=== PATIENT | female | born 1935 | race Caucasian/White ===

== ENCOUNTER 2017-06-02 19:19 | Inpatient (IN) | payer MEDICARE, MEDICAID ==
[~2017-06-02] VITALS: Ht 167.6 cm; Wt 109.8 kg
--- NOTE | 2017-06-02 19:25 | NUR ---
"A-FIB ON MONITOR REED FIXER". NAD NOTED, VSS, RESP EVEN AND UNLABORED, PT WAS PUT ON MONITOR AND [facility] MD SIMONE AT BS.
[2017-06-02 19:52] LABS: BASOPHILS # (AUTO) 0.1 /CMM (0.0-0.2); BASOPHILS % (AUTO) 1.2 % (0.0-2.0); EOSINOPHILS % (AUTO) 0.1 % (0.0-6.0); HEMATOCRIT 32 % (33-45); HEMOGLOBIN 10.6 g/dL (11.5-14.8); LYMPHOCYTES # (AUTO) 0.5 /CMM (0.8-4.8); LYMPHOCYTES % (AUTO) 7.4 % (20.0-44.0); MEAN CORPUSCULAR HGB CONC 34 g/dl (31.0-36.0); MEAN CORPUSCULAR VOLUME 81 fL (82-100); MONOCYTES # (AUTO) 0.1 /CMM (0.1-1.30); MONOCYTES % (AUTO) 1.9 % (2.0-12.0); NEUTROPHILS # (AUTO) 5.8 /CMM (1.8-8.9); NEUTROPHILS % (AUTO) 89.4 % (43.0-81.0); PLATELET COUNT (AUTO) 147 /CMM (150-450); RDW COEFFICIENT OF VARIATION 15.4 (11.5-15.0); RED BLOOD CELL COUNT(AUTO) 3.89 MIL/uL (4.0-5.2); WHITE BLOOD COUNT (AUTO) 6.5 K/uL (4.3-11.0)
[2017-06-02] MEDS ORDERED: IV NS 0.9% 1,000 ML BAG IV ONE (20:00)
[2017-06-02 20:03] LABS: CALCIUM, SERUM 9.1 mg/dL (8.5-10.1); CARBON DIOXIDE 25 mmol/L (21-32); CHLORIDE 101 mmol/L (98-107); CREATININE 1.5 mg/dL (0.6-1.3); GLUCOSE 97 mg/dL (74-106); POTASSIUM 4.5 mmol/L (3.5-5.1); SODIUM SERUM 136 mmol/L (136-145); UREA NITROGEN, BLOOD 41 mg/dL (7-18)
[2017-06-02 20:06] LABS: INR 1.18 (0.85-1.15)
[2017-06-02 20:07] LABS: APPEARANCE,URINE Clear (CLEAR); BILIRUBIN,URINE Negative (NEGATIVE); BLOOD, URINE Trace-lysed Ery/uL (NEGATIVE); COLOR,URINE Yellow (YELLOW); KETONES,URINE Negative (NEGATIVE); LEUKOCYTE ESTERASE ,URINE Negative (NEGATIVE); NITRITE, URINE Negative (NEGATIVE); PH,URINE 5.5 (5.0-8.0); PROTEIN,URINE 100 mg/dl (NEGATIVE); UGLUCOSE Negative (NEGATIVE); UROBILINOGEN,URINE 0.2 EU/dL (0.2)
[2017-06-02 20:08] LABS: ALANINE AMINOTRANSFERASE 27 U/L (12-78); ALBUMIN 3.5 g/dL (3.4-5.0); ALKALINE PHOSPHATASE 93 U/L (46-116); ASPARTATE AMINOTRANSFERASE 21 U/L (15-37); BILIRUBIN,DIRECT 0.3 mg/dL (0.0-0.2); BILIRUBIN,TOTAL 0.7 mg/dL (0.2-1.0); TOTAL PROTEIN, SERUM 7.9 g/dL (6.4-8.2)
[2017-06-02 20:10] LABS: TROPONIN I < 0.017 ng/mL (0.00-0.056)
[2017-06-02 20:21] LABS: BACTERIA,URINE Rare /HPF (None Seen); SQUAMOUS EPITHELIAL CELL,UR Few /HPF (None Seen); WBC,URINE 0-2 /HPF (0-3)
[2017-06-02] MEDS ORDERED: ACETAMINOPHEN ES 500 MG TABLET PO ONE (21:00)
[2017-06-02] MEDS ORDERED: PIPERACILLIN /TAZOBACTAM 3.375 G in IV D5W 50 ML IV ONE (21:00)
[2017-06-02] MEDS ORDERED: IV NS 0.9% 1,000 ML IV PRN (21:02)
[2017-06-02] MEDS ORDERED: ACETAMINOPHEN ES 500 MG TABLET ONE (21:11)
[2017-06-02] MEDS ORDERED: PIPERACILLIN /TAZOBACTAM 3.375 G VIAL IV ONE (21:11)
[2017-06-02] MEDS ORDERED: VANCOMYCIN 1 GM VIAL ONE (21:11)
--- NOTE | 2017-06-02 21:29 | NUR ---
US AT BS.
[2017-06-02] MEDS ORDERED: Z GUARD REMEDY 2 OZ OINT TP PRN (21:30)
[2017-06-02] MEDS ORDERED: ONDANSETRON HCL/PF 4 MG/2 ML VIAL IVP PRN (21:30)
[2017-06-02] MEDS ORDERED: HYDROCODONE/APAP 5/325MG 1 EACH TABLET PO PRN (21:30)
[2017-06-02] MEDS ORDERED: ZOLPIDEM TARTRATE 5 MG TABLET PO PRN (21:30)
[2017-06-02] MEDS ORDERED: VANCOMYCIN 0.75 GM in IV NS 0.9% 250 ML IV SCH (21:30)
[2017-06-02] MEDS ORDERED: METOPROLOL TARTRATE INJ 5 MG/5 ML AMPUL IVP PRN (21:30)
[2017-06-02] MEDS ORDERED: MORPHINE SULFATE INJ 2 MG/ML DISP.SYRIN IV PRN (21:30)
[2017-06-02] MEDS ORDERED: IPRATROPIUM NEB FS 0.5 MG/2.5 ML AMPUL.NEB NEB PRN (21:30)
[2017-06-02] MEDS ORDERED: MAG HYDROX/AL HYDROX/SIMETH 30 ML UDC PO PRN (21:30)
[2017-06-02] MEDS ORDERED: ACETAMINOPHEN 325 MG TABLET PO PRN (21:30)
[2017-06-02] MEDS ORDERED: MAGNESIUM HYDROXIDE 30 ML UDC PO PRN (21:30)
[2017-06-02 21:50] VITALS: BP 98/50
--- NOTE | 2017-06-02 21:51 | NUR ---
REPORT GIVENTO MARIVEL/RN ON BEHALF OF PRIMARY NURSE FAUSTINO
[2017-06-02 22:00] VITALS: BP 98/50
[2017-06-02] MEDS ORDERED: VANCOMYCIN 1.5 GM in IV D5W 500 ML IV ONE (22:00)
[2017-06-02] MEDS ORDERED: VANCOMYCIN 500 MG VIAL ONE (22:08)
--- NOTE | 2017-06-02 22:30 | NUR ---
RN NOTES RECEIVE PT FROM [facility] AT 2150 VIA JEN PT A/O X 3, JAPANESE SPEAKING. DAUGHTER DARYL AT BEDSIDE. ON O2 2LPM VIA NC 02 SAT 96%. HEAD TO TOE SKIN ASSESSMENT IS DONE. MED RECON DONE. NO S/S OF DISTRESS, STABLE, SAFETY MEASURES IN PLACE, CALL LIGHT WITHIN REACH, WILL CONTINUE TO MONITOR. ATTACH TO TELE MONITOR. PT AFEBRILE. RESPIRATION EVEN AND UNLABORED. NO CHEST PAIN.
[2017-06-02] MEDS ORDERED: PIPERACILLIN /TAZOBACTAM 2.25 G in IV D5W 50 ML IV SCH (23:00)
[2017-06-02] MEDS ORDERED: FAMO20TA8 PO (23:24)
[2017-06-02] MEDS ORDERED: FURO80TA3 PO (23:24)
[2017-06-02] MEDS ORDERED: MECL-102 PO (23:24)
[2017-06-02] MEDS ORDERED: DIGO0.12 PO (23:24)
[2017-06-02] MEDS ORDERED: ZOLP10TA6 PO (23:24)
[2017-06-02] MEDS ORDERED: CHOL20004 PO (23:24)
[2017-06-02] MEDS ORDERED: DIGOXIN 0.125 MG TABLET PO SCH (23:30)
[2017-06-03] VITALS (8 sets, daily range): BP systolic 108–165; BP diastolic 59–95
[2017-06-03] MEDS ORDERED: PIPERACILLIN /TAZOBACTAM 3.375 G in IV NS 0.9% 50 ML IV SCH ×2
[2017-06-03] MEDS ORDERED: WARF-68 PO (00:11)
[2017-06-03] MEDS ORDERED: SPIR50TA5 PO (00:11)
[2017-06-03] MEDS ORDERED: DOCU100C36 PO (00:11)
[2017-06-03] MEDS ORDERED: ELET40TA PO (00:11)
[2017-06-03] MEDS ORDERED: DICL50TA7 PO (00:11)
[2017-06-03] MEDS ORDERED: GABA-534 PO (00:11)
[2017-06-03] MEDS ORDERED: SIMV20TA6 PO (00:11)
[2017-06-03] MEDS ORDERED: ASPI-1152 PO (00:11)
[2017-06-03] MEDS ORDERED: WARF-58 PO (00:11)
[2017-06-03] MEDS ORDERED: INSU100V30 IJ (00:16)
[2017-06-03] MEDS ORDERED: INSU100V7 SQ (00:16)
--- NOTE | 2017-06-03 01:26 | NUR ---
ELADIO DORSEY MADE AWARE OF MEDICATION RECONCILIATION PER SHE WILL TAKE LOOK OF IT.
--- NOTE | 2017-06-03 02:40 | NUR ---
PAGED DR. DORSEY REGARDING RESULT OF VENOUS STUDIES AWAITING CALL BACK
--- NOTE | 2017-06-03 03:00 | NUR ---
PAGED AGAIN DR. DORSEY TO RELAY REGARDING A-FIB CURRENT HR IS 145'S DESPITE GIVING LOPRESSOR AWAITING CALL BACK ORDERED STAT EKG CHARGE NURSE MADE AWARE
--- NOTE | 2017-06-03 03:15 | NUR ---
[employer] NURSE NOTES PAGED DR. DORSEY AGAIN AWAITING CALL BACK
--- NOTE | 2017-06-03 03:25 | NUR ---
DR. DORSEY CALLED BACK SPOKE TO HER RELAYED CURRENT READING OF EKG A-FIB WITH RVR AND VENOUS LOWER EXTREMITY DOPPLER RESULTS PT REMAINS CALM CURRENT VS BP 131/63 PULSE 140 T 98.7 R 20 02 SAT 97% ON 2LPM VIA NC. PER DR. DORSEY SHE WILL ENTER DIGOXIN ORDER FOR ME TO GIVE NOW AND TRANSFER PATIENT TO [facility] VERIFIED ORDERS AND READ BACK NOTED AND CARRIED OUT CHARGE NURSE AWARE
--- NOTE | 2017-06-03 03:50 | NUR ---
TRANSFERRED PATIENT TO [facility] NO INCIDENT HAPPENED. PLAN OF CARE DISCUSSED TO RECEIVING [facility] RN
[2017-06-03] MEDS ORDERED: ENOXAPARIN SODIUM 100 MG/ML DISP.SYRIN SQ SCH ×2 (04:00→21:00)
[2017-06-03] MEDS ORDERED: DILTIAZEM HCL 50 MG IV IV ONE (04:00)
[2017-06-03] MEDS ORDERED: DIGOXIN INJ 0.5 MG/2 ML AMPUL IV ONE (04:00)
[2017-06-03] MEDS ORDERED: DILTIAZEM HCL IV 125 MG in IV NS 0.9% 100 ML IV PRN (04:00)
--- NOTE | 2017-06-03 04:00 | NUR ---
RN NOTES RECEIVED PATIENT FROM [facility]W VIA ACLS PROTOCOL. RECEIVED REPORT FROM MARIVEL. DIGOXIN GIVEN PRIOR TO TRANSFER TO UNIT. PATIENT IN NO ACUTE DISTRESS. DENIES ANY PAIN AND DISCOMFORT. PLACED PATIENT ON 2LPM OF O2 VIA NC, RESPIRATION IS EVEN AND UNLABORED WITH NO DISTRESS. VS AT 148/83, 115-125 HR, AFIB, 98% ON 2LPM VIA NC. WITH G24 PIV ON RAC, WAS ABLE TO INSERT G20 PIV ON LAC. CLOSELY MONITORED.
[2017-06-03] MEDS ORDERED: DILTIAZEM HCL 25 MG IV ONE ×2 (04:22→04:26)
--- NOTE | 2017-06-03 04:30 | NUR ---
RN NOTES SPOKE AND CLARIFIED WITH DR. DORSEY REGARDING THE STARTING DOSE OF THE PATIENT'S DILTIAZEM GTT. VS ARE: 147/81, HR RANGES FROM 98-112 AFIB, 18 RESPIRATION, 98% ON 2LPM OF O2 VIA NC. PER DR. DORSEY, GIVE THE CARDIZEM 5MG IVP FIRST AND OBSERVED PATIENT'S RESPONSE FOR 30 MINUTES. IF PATIENT REMAINS AFIB, WITH HR CONSISTENT TO BE >110, START DILTIAZEM GTT AT 5MG/HR. NOTED. LEIGHTON LYMAN, MADE AWARE. DILTIAZEM IVP X1 ADMINISTERED ORDERED. STRIPS PRINTED AND FILED IN CHART. Addendum: 06/03/17 at 0507 by YAKOV MOSS RN LOVENOX GIVEN ORDERED. NOTED WITH LLE SWELLING, REDNESS AND WARM TO TOUCH.
--- NOTE | 2017-06-03 04:34 | NUR ---
LEFT A MESSAGE TO PERSON TO NOTIFY VIA VOICEMAIL NOT ANSWERING ABOUT TRANSFERRING PT TO [facility] ([facility])
--- NOTE | 2017-06-03 05:09 | NUR ---
RN NOTES VS: 143/80, 100.4 TEMP, 20, 96% ON 2LPM VIA NC, AFIB WITH HR KEPT AT 90s. EVEN WITH PATIENT'S MOVEMENT, TRANSFERRING TO COMMODE AND BEARING DOWN. DR. DORSEY MADE AWARE. HOLD OFF ON CARDIZEM GTT, KEEP PRN. NOTED. LEIGHTON LYMAN, MADE AWARE.
[2017-06-03] MEDS ORDERED: PIPERACILLIN /TAZOBACTAM 2.25 G VIAL IV ONE (05:34)
[2017-06-03] MEDS ORDERED: PIPERACILLIN /TAZOBACTAM 2.25 G in IV D5W 50 ML IV SCH (06:00)
[2017-06-03 06:47] LABS: BASOPHILS % (AUTO) 0.3 % (0.0-2.0); HEMATOCRIT 27 % (33-45); HEMOGLOBIN 9.1 g/dL (11.5-14.8); LYMPHOCYTES # (AUTO) 0.5 /CMM (0.8-4.8); LYMPHOCYTES % (AUTO) 6.4 % (20.0-44.0); MEAN CORPUSCULAR HGB CONC 34 g/dl (31.0-36.0); MEAN CORPUSCULAR VOLUME 81 fL (82-100); MONOCYTES # (AUTO) 0.3 /CMM (0.1-1.30); MONOCYTES % (AUTO) 4.4 % (2.0-12.0); NEUTROPHILS % (AUTO) 88.9 % (43.0-81.0); PLATELET COUNT (AUTO) 122 /CMM (150-450); RDW COEFFICIENT OF VARIATION 16.1 (11.5-15.0); RED BLOOD CELL COUNT(AUTO) 3.31 MIL/uL (4.0-5.2); WHITE BLOOD COUNT (AUTO) 7.8 K/uL (4.3-11.0)
[2017-06-03 06:55] LABS: B-TYPE NATRIURETIC PEPTIDE 3344 PG/ML (0-125); CARBON DIOXIDE 22 mmol/L (21-32); CHLORIDE 104 mmol/L (98-107); CREATININE 1.6 mg/dL (0.6-1.3); GLUCOSE 134 mg/dL (74-106); MAGNESIUM 1.8 mg/dL (1.8-2.4); PHOSPHORUS 2.9 mg/dL (2.5-4.9); POTASSIUM 4.5 mmol/L (3.5-5.1); SODIUM SERUM 136 mmol/L (136-145); UREA NITROGEN, BLOOD 36 mg/dL (7-18)
[2017-06-03] MEDS ORDERED: FEE PK DOSING 1 MIN EA MC ONE (06:57)
[2017-06-03] MEDS ORDERED: IPRATROPIUM NEB FS 0.5 MG/2.5 ML AMPUL.NEB NEB PRN (07:00)
[2017-06-03] MEDS ORDERED: FENTANYL PF 100MCG/2ML AMPUL IV PRN (07:30)
[2017-06-03 07:40] LABS: CHOLESTEROL 155 mg/dL (<200); HDL CHOLESTEROL 39 mg/dL (40-60); LDL 102 mg/dL (0-99); THYROID STIMULATING HORMONE 1.162 uIU/mL (0.358-3.74); TRIGLYCERIDES 80 mg/dL (30-150)
[2017-06-03 07:53] LABS: IRON, SERUM 11 ug/dl (50-175); TOTAL IRON BINDING CAPACITY 211 ug/dl (250-450)
--- NOTE | 2017-06-03 08:00 | NUR ---
TD/RN AM SHIFT INITIAL NOTES RECEIVED PT ASLEEP IN BED, PT A/O X 3, VIETNAMESE SPEAKING, DENIES ANY SYMPTOMS. ON 2L O2 VIA N/C SATURATING @ 95%, LUNG SOUNDS DIMINISHED. ON TELE WITH CONTROLLED A-FIB WITH BBB, HR 93. IV SITES FLUSHED, PATENT WITH NO S/S OF INFECTION, SL. PT IS COMFORTABLE, SCHEDULED AM MEDS TO BE GIVEN. CL WITHIN REACHED AND SAFETY MAINTAINED. ON GOING MONITORING.
[2017-06-03] MEDS ORDERED: FUROSEMIDE 20 MG/2 ML VIAL IV ONE (08:30)
[2017-06-03] MEDS: MECLIZINE HCL 25 MG TABLET PO SCH (08:33)
[2017-06-03] MEDS: FAMOTIDINE (20 MG) 20 MG TABLET PO SCH (08:34)
[2017-06-03] MEDS ORDERED: FERROUS SULFATE (325 MG) 325 MG/TAB TABLET PO SCH (09:00)
[2017-06-03] MEDS ORDERED: FUROSEMIDE 80 MG TABLET PO SCH (09:00)
[2017-06-03] MEDS: CEFTRIAXONE 1 G in IV D5W 50 ML IV SCH (10:49)
[2017-06-03] MEDS: FUROSEMIDE 40 MG/4 ML VIAL IV SCH ×3 (10:51→18:12)
[2017-06-03] MEDS ORDERED: IV NS 0.9% 500 ML BAG IV ONE (11:00)
--- NOTE | 2017-06-03 12:00 | NUR ---
TELE1/RN NOON ROUNDS NO CHANGE OF CONDITION. MONITORING CONTINUED.
[2017-06-03 14:33] LABS: ABG BASE EXCESS -1.6 mmol/L; ABG OXYGEN SATURATION 94.6 % (92.0-98.5); ABG PCO2 38.1 mmHg (35.0-45.0); ABG PH 7.399 (7.350-7.450); ABG PO2 78.8 mmHg (75.0-100.0); AaDO2 25.3 mmHg; COHb 0.3 % (0.5-1.5); MetHb 0.6 % (0.0-1.5); O2Hb 93.7 % (94.0-97.0); SITE, ABG Left Radial; VENT MODE, BG RA
[2017-06-03] MEDS: SOD FERRIC GLUC 125 MG in IV NS 0.9% 100 ML IV SCH (14:47)
--- NOTE | 2017-06-03 17:30 | NUR ---
TELE1/RN AFTERNOON ROUNDS PM CARE PROVIDED. NO ACUTE CHANGE OF CONDITION.
[2017-06-03] MEDS: LACTOBACILLUS RHAMNOSUS GG 1 EACH CAP.SPRINK PO SCH (18:12)
--- NOTE | 2017-06-03 20:10 | NUR ---
TELE1/RN AM SHIFT END NOTES ALL NEEDS MET. NO ACUTE CHANGE OF CONDITION NOTED DURING THE SHIFT. PT ENDORSED TO PM NURSE TO CONTINUE CARE. CL WITHIN REACHED AND SAFETY MAINTAINED.
--- NOTE | 2017-06-03 22:34 | NUR ---
RN NOTES PATIENT'S NM LUNG SCAN RESULTED WITH OVAL INDETERMINATE PROBABILITY FOR PULMONARY EMBOLUS. EPIC ON-CALL, DR. DORSEY, MADE AWARE. NNO GIVEN.
[2017-06-04 04:00] VITALS: BP 143/87
--- NOTE | 2017-06-04 06:14 | NUR ---
RN NOTES PATIENT WITH NO ACUTE DISTRESS OBSERVED OVERNIGHT. REMAINS AFIB ON TELE WITH HR IN THE 80s-90s. ON 2LPM OF O2 VIA NC. NO DISTRESS. DENIES DISCOMFORT. ASSISTED WITH ADLS NEEDED. SAFETY AND COMFORT ENSURED. BED IN LOW AND LOCKED POSITION. CALL LIGHT IN REACH. BED ALARM IN PLACE.
[2017-06-04 06:21] LABS: BASOPHILS % (AUTO) 0.7 % (0.0-2.0); EOSINOPHILS % (AUTO) 1.4 % (0.0-6.0); HEMATOCRIT 28 % (33-45); HEMOGLOBIN 9.2 g/dL (11.5-14.8); LYMPHOCYTES # (AUTO) 0.8 /CMM (0.8-4.8); LYMPHOCYTES % (AUTO) 21.3 % (20.0-44.0); MEAN CORPUSCULAR HGB CONC 34 g/dl (31.0-36.0); MEAN CORPUSCULAR VOLUME 82 fL (82-100); MONOCYTES # (AUTO) 0.3 /CMM (0.1-1.30); MONOCYTES % (AUTO) 8.3 % (2.0-12.0); NEUTROPHILS # (AUTO) 2.6 /CMM (1.8-8.9); NEUTROPHILS % (AUTO) 68.3 % (43.0-81.0); PLATELET COUNT (AUTO) 121 /CMM (150-450); RDW COEFFICIENT OF VARIATION 16.1 (11.5-15.0); RED BLOOD CELL COUNT(AUTO) 3.36 MIL/uL (4.0-5.2); WHITE BLOOD COUNT (AUTO) 3.8 K/uL (4.3-11.0)
[2017-06-04 06:54] LABS: ALANINE AMINOTRANSFERASE 31 U/L (12-78); ALBUMIN 2.8 g/dL (3.4-5.0); ALKALINE PHOSPHATASE 75 U/L (46-116); ASPARTATE AMINOTRANSFERASE 22 U/L (15-37); BILIRUBIN,TOTAL 0.7 mg/dL (0.2-1.0); CALCIUM, SERUM 8.7 mg/dL (8.5-10.1); CARBON DIOXIDE 24 mmol/L (21-32); CHLORIDE 105 mmol/L (98-107); CREATININE 1.8 mg/dL (0.6-1.3); GLUCOSE 106 mg/dL (74-106); MAGNESIUM 1.8 mg/dL (1.8-2.4); PHOSPHORUS 3.3 mg/dL (2.5-4.9); SODIUM SERUM 141 mmol/L (136-145); TOTAL PROTEIN, SERUM 6.7 g/dL (6.4-8.2); UREA NITROGEN, BLOOD 40 mg/dL (7-18)
[2017-06-04 06:58] LABS: TROPONIN I 0.028 ng/mL (0.00-0.056)
--- NOTE | 2017-06-04 07:30 | NUR ---
[employer]SULTANT AM NOTES RECEIVED PT IN BED, PT AA/O X 3, [place] SPEAKING, ON 2L O2 VIA N/C SATURATING @ 98%, LUNG SOUNDS DIMINISHED. ON TELE WITH CONTROLLED A-FIB OCC V PACING HR 97. RAC G22 AND LEFT AC G 22 FLUSHES WELL, BOTH SITES CLEAR. DENIES ANY PAIN/DISCOMFORT. CARDIAC DIET. SEE NURSING FLOWSHEET FOR SKIN ISSUES. USES BSC. CALL LIGHT WITHIN REACH AND SAFETY MAINTAINED. WILL CONTINUE TO MONITOR.
--- NOTE | 2017-06-04 07:40 | NUR ---
MS RN NOTES DC TELEMETRY PER DR. SILVER
[2017-06-04 08:00] VITALS: BP 149/87
[2017-06-04] MEDS ORDERED: RIVAROXABAN 10 MG TABLET PO SCH (08:00)
[2017-06-04] MEDS: CEFTRIAXONE 1 G in IV D5W 50 ML IV SCH (08:45)
[2017-06-04] MEDS: FAMOTIDINE (20 MG) 20 MG TABLET PO SCH (08:45)
[2017-06-04] MEDS: MECLIZINE HCL 25 MG TABLET PO SCH (08:45)
[2017-06-04] MEDS: LACTOBACILLUS RHAMNOSUS GG 1 EACH CAP.SPRINK PO SCH (08:45)
--- NOTE | 2017-06-04 08:45 | NUR ---
MS RN NOTES STARTED ROCEPHIN IV.
--- NOTE | 2017-06-04 09:30 | NUR ---
MS RN NOTES DUE MEDS GIVEN
[2017-06-04] MEDS ORDERED: VANCOMYCIN 1.5 GM in IV D5W 500 ML IV SCH (10:00)
--- NOTE | 2017-06-04 10:28 | NUR ---
MS RN NOTES VANCO IV STARTED.
[2017-06-04] MEDS ORDERED: LEVO500T75 PO (11:36)
[2017-06-04] MEDS ORDERED: APIX5TAB PO (11:36)
[2017-06-04 12:00] VITALS: BP_SYST 146; BP_DIAS 49; BP_DIAS 69
[2017-06-04] MEDS ORDERED: DEXTROSE 50%-WATER 50 ML DISP.SYRIN IV PRN (13:00)
[2017-06-04] MEDS ORDERED: BLOOD SUGAR DIAGNOSTIC 1 EACH STRIP IN SCH ×3 (13:00)
[2017-06-04] MEDS ORDERED: INSULIN REGULAR, HUMAN 100 UNIT/ML 3 ML VIAL SQ PRN (13:00)
--- NOTE | 2017-06-04 13:16 | NUR ---
MS RN NOTES ACCUCHECK DONE. BS 278 MG/DL. ADMINISTERED 6 UNITS HUM R PER SLIDING SCALE.
[2017-06-04] MEDS: SOD FERRIC GLUC 125 MG in IV NS 0.9% 100 ML IV SCH (15:07)
--- NOTE | 2017-06-04 15:07 | NUR ---
MS RN NOTES STARTED TONAIT IV.
[2017-06-04 16:00] VITALS: BP 145/60
--- NOTE | 2017-06-04 16:38 | NUR ---
MS RN NOTES PATIENT DISCHARGED TO HOME TODAY PER MD IN STABLE CONDITION. PROVIDED DC INSTRUCTIONS, MED RECON LIST/PRESCRIPTION AND HEALTH TEACHINGS. IV ACCESS TO LEFT AC AND RIGHT AC REMOVED. NO BLEEDING, DRESSINGS IN PLACE. PATIENT TO FOLLOW UP WITH PCP IN 1 WEEK AND WILL MAKE OWN APPOINTMENT. ALL BELONGINGS CHECKED AND RETURNED. ALL PAPER WORKS SIGNED. ASSISTED BY CALE QUIROGA TO LOBBY VIA WHEELCHAIR. PATIENT PICKED UP BY HER DAUGHTER AND WILL BRING HOME VIA PRIVATE CAR.
== END 2017-06-04 16:49 | disposition home health service (06) | DRG 194 ==
LOC: ER 19:21 → TELE 21:30 → TELE-TD 06-03 03:49 → TELE1 06-03 03:51 → TELE-TD 06-03 03:51 → TELE1 06-03 09:05 → MEDSG1 06-04 08:01
PROVIDERS: ADMIT Internal Medicine; ATTEND Internal Medicine
DX: I13.0 Hypertensive heart and chronic kidney disease with heart failure and stage 1 through stage 4 chronic kidney disease, or unspecified chronic kidney disease (principal); J96.01 Acute respiratory failure with hypoxia; N17.9 Acute kidney failure, unspecified; E44.0 Moderate protein-calorie malnutrition; E11.22 Type 2 diabetes mellitus with diabetic chronic kidney disease; I27.20 Pulmonary hypertension, unspecified; I48.91 Unspecified atrial fibrillation; I82.512 Chronic embolism and thrombosis of left femoral vein; E78.5 Hyperlipidemia, unspecified; D50.9 Iron deficiency anemia, unspecified; I50.33 Acute on chronic diastolic (congestive) heart failure; D63.8 Anemia in other chronic diseases classified elsewhere; I25.10 Atherosclerotic heart disease of native coronary artery without angina pectoris; K21.9 Gastro-esophageal reflux disease without esophagitis; N18.9 Chronic kidney disease, unspecified; Z79.4 Long term (current) use of insulin; Z95.0 Presence of cardiac pacemaker; Z95.1 Presence of aortocoronary bypass graft; Z68.39 Body mass index [BMI] 39.0-39.9, adult; Y92.009 Unspecified place in unspecified non-institutional (private) residence as the place of occurrence of the external cause; T46.0X5A Adverse effect of cardiac-stimulant glycosides and drugs of similar action, initial encounter
CPT/HCPCS: 36415; 36600; 71045-TC; 78582; 80048-TC; 80053-TC; 80061-TC; 80076-TC; 80162-TC; 81000-TC; 82746; 82962-TC; 83540-TC; 83605-TC; 83735-TC; 83880; 84100-TC; 84439-TC; 84443-TC; 84484-TC; 85025-TC; 85730-TC; 87040-TC; 87081-TC; 87086-TC; 93307-TC; 93971-TC; A4216; A4606; A9540; A9567; J0696; J1160; J1650; J1815; J1940; J2543; J2916; J3370; J3490; J7030; J7040; J7050; J7060; J8597; Z7610